=== PATIENT | female | born 1990 | race Caucasian/White ===

== ENCOUNTER 2017-01-29 21:18 | Outpatient (CLI) | payer MEDICAID ==
[~2017-01-29] VITALS: Ht 157.5 cm; Wt 106.3 kg
[~2017-01-29 21:18] MED LIST: PREN-55 PO
[2017-01-29 21:36] VITALS: Ht 157.5 cm; Wt 106.3 kg
[2017-01-29 21:37] VITALS: BP 122/81; PULSE 88; RESP 18
[2017-01-29 22:11] LABS: ADD UMIC YES; URINE BILIRUBIN (Dip) NEGATIVE (NEGATIVE); URINE BLOOD (Dip) NEGATIVE (NEGATIVE); URINE COLOR LT. YELLOW (YELLOW); URINE GLUCOSE (Dip) NEGATIVE (NEGATIVE); URINE KETONES (Dip) NEGATIVE (NEGATIVE); URINE LEUKOCYTE ESTERASE (Dip) TRACE (NEGATIVE); URINE NITRITE (Dip) NEGATIVE (NEGATIVE); URINE TOTAL PROTEIN (Dip) NEGATIVE (NEGATIVE); URINE UROBILINOGEN (Dip) 0.2 E.U./dL (0.1-1.0)
[2017-01-29 22:26] LABS: URINE RBCS 0-2 /HPF (0)
[2017-01-29 22:27] LABS: SQUAMOUS EPITHELIAL CELL,UR FEW
--- NOTE | 2017-01-29 23:12 | RADRPT ---
PROCEDURE: ULTRASOUND BIOPHYSICAL PROFILE CLINICAL INDICATION: 26-year-old female with contractions for cervical length evaluation. TECHNIQUE: Multiple sonographic images were obtained in order to perform a biophysical profile The images were reviewed on a PACS workstation. COMPARISON: None. FINDINGS: The cervix appears closed with a length of 3.9 cm measured transvaginally. There is a single viable intrauterine gestation. There is a transverse left presentation. Cardiac activity is present at 15 4 beats per minute. The placenta is posterior grade 2. The results of the biophysical profile are a s follows: breathing movement = 2/2 Gross body movement = 2/2 tone = 2/2 Qualitative amniotic fluid volume = 2/2 Amniotic fluid index equals 16.4 cm. This yields a biophysical profile score of 8/8. IMPRESSION: 1. Biophysical profile score is 8/8. 2. The cervix has a length of 3.9 cm. .Malcom Daugheryt MD, MD Date Time Electronically viewed and signed by .Malcom Daugherty MD, MD on 01/29/2017 23:12 .M/
--- NOTE | 2017-01-30 06:57 | QN ---
Documentation Comment iup 33 weeks co of back pain no NVFC vss exam wnl no cvat us wnl ap iup 33 weeks false labor dc home NIKI RAMIREZ MD January 30, 2017 06:57
== END 2017-01-29 23:38 | disposition home or self-care (01) ==
LOC: OBT 21:18 → L-D 21:18 → OBT 23:38
PROVIDERS: ATTEND Obstetrics & Gynecology
DX: O26.893 Other specified pregnancy related conditions, third trimester (principal); M54.9 Dorsalgia, unspecified; Z3A.33 33 weeks gestation of pregnancy
CPT/HCPCS: 76817; 76818; 81001; Z7500; G0463

== ENCOUNTER 2017-03-14 09:56 | Outpatient (CLI) | payer MEDICAID ==
[~2017-03-14] VITALS: Ht 157.5 cm; Wt 108.6 kg
[2017-03-14 10:11] VITALS: BP 123/68; PULSE 93; RESP 18
[2017-03-14] MEDS ORDERED: CALC600T11 PO (10:13)
[2017-03-14] MEDS ORDERED: FOL8 PO (10:13)
[2017-03-14] MEDS ORDERED: FERR236T PO (10:13)
--- NOTE | 2017-03-14 12:58 | RADRPT ---
PROCEDURE: US OB biophysical profile. CLINICAL INDICATION: decreased movements TECHNIQUE: Multiple sonographic images of the pelvis were obtained. The images were reviewed on a PACS workstation. COMPARISON: 01/29/2017 FINDINGS: There is a single viable intrauterine gestation. Cardiac activity is present with , 140 beats per m inute. There is a vertex presentation. The placenta is fundal. There is no evidence of placental abruption. There is a normal amount of amniotic fluid with an CHANTELLE = 8.9 cm. Biophysical profile: movement 2/2 tone 2/2. breathing 2/2 CHANTELLE 2/2 Total 04/13 RPTAT: AA . IMPRESSION: Normal biophysical profile. . .Jose Borrego MD, MD Date Time Electronically viewed and signed by .Jose Borrego MD, MD on 03/14/2017 12:58 .S/
--- NOTE | 2017-03-14 13:01 | RADRPT ---
PROCEDURE: US OB. CLINICAL INDICATION: Size and dates TECHNIQUE: Multiple sonographic images of the pelvis and gravid uterus were obtained. The images were reviewed on a PACS workstation. COMPARISON: 01/29/2017 FINDINGS: There is a single viable intrauterine gestation. Cardiac activity is present at 142 beats per minut e. There is a vertex presentation. The placenta is fundal. There is no evidence of placental abruption. There is a normal amount of amniotic fluid with an CHANTELLE = 8.9 cm. Measurements were made in order to determine age. The results are as follows: BPD =9.0 cm HC =31.3 cm AC =32.3 cm FL =7.3 cm Estimated gestational age of approximately 36 weeks and 2 days based on ultrasound measurements. Clinical age: 39 weeks and 6 days. The estimated date of delivery is 04/09/2017, based on ultrasound measurements. The EFW = 2931 g, 7%, based on LMP age. RPTAT: AA IMPRESSION: Single viable intrauterine gestation of approximately 36 weeks and 2 days based on ultrasound measu rements. Smaller than clinical age by 3.5 weeks. .Jose Borrego MD, Date Time Electronically viewed and signed by .Jose Borrego MD, on 03/14/2017 13:01 .S/
--- NOTE | 2017-03-14 16:36 | PN ---
Triage Information Date/Time March Weeks of Gestation 39w 6d : 4 Para: 2 Diabetes: none Hypertention: none Additional information C/O UC's since 0900. PMHx: none. POBHx: x 2 2009, 2012 neither of which was a particularly quick labor. SAB at 4 months. PSHx: none. NKDA. Objective Vital Signs Date Time Temp Pulse Resp B/P Pulse Ox O2 Delivery O2 Flow Rate FiO2 03/14/17 10:11 97.9 93 18 123/68 96 Room Air Heart Rate: 140's Heart Rate Comments Accels to 160 bpm. No decels. Contractions: 6-10 Minutes Apart Exam 50%/2/-3/firm/vtx. Results/Medications Imaging Results BPP 8/8. CHANTELLE 8.9. EFW 2931 grams. Assessment/Plan A: IUP at 39w 6d. Prodromal labor. No change in her cervix with ambulation and time. P: D/C home. Keep appt with her doctor on 03/17 as scheduled. MIRTA GONZALEZ MD Mar 14, 2017 16:33
--- NOTE | 2017-03-14 17:06 | TRIAGE ---
OB Triage Datetime Report Generated by CPN: 03/14/2017 17:06 Datetime: 03/14/2017 16:34 Time of Arrival: 03/14/2017 09:50 EGA: 39.6 Arrived By: Wheelchair Arrived From: Emergency Dept Chief Complaint: PT REPORTS CONTRACTIONS FROM APPROX 0900 Movement: Present Contractions: Regular Time Contractions Began: 03/14/2017 09:00 Contractions: Q5-10MIN Rupture of Membranes: Denies Vaginal Bleeding: None Vaginal Discharge: Denies Recent Sexual Intercouse: Yes Abdominal Trauma: Not Applicable Patient Complaints: Contractions Time Provider Notified: 03/14/2017 10:46 Provider Notified: DR. GONZALEZ Initial Plan: EFM x2, SVE Datetime: 03/14/2017 16:09 Nausea/Vomiting: Denies Labor Evaluation Frequency: NONE Monitor Mode: External Pattern: Normal: <= 5 Contractions in 10 Minutes Resting Tone [place]: Relaxed Heart Rate FHR Baseline Rate: 135 FHR Baseline Changes: No Baseline Change Variability: Moderate 6-25 bpm Accelerations: 15X15 Decelerations: None Comments: FHTs OFF MONITOR WHILE PT ON SIDE. Pain Assessment Pain Scale: 0 Pain Presence: None/Denies Pain Type: N/A Pain Assessment Comments: PT REPORTS THAT SHE NO LONGER FEELS CONTRACTIONS. Datetime: 03/14/2017 16:04 Vaginal Exam Dilatation (cms): 1.0 Exam By: DR. REICHE Cervix, Consistency: Firm Cervix, Position: Posterior Datetime: 03/14/2017 15:18 Nausea/Vomiting: Present Datetime: 03/14/2017 15:00 Labor Evaluation Frequency: 0 Monitor Mode: External Quality: Mild Pattern: Normal: <= 5 Contractions in 10 Minutes Resting Tone [place]: Relaxed Heart Rate FHR Baseline Rate: 135 Monitor Mode: External US FHR Baseline Changes: No Baseline Change Variability: Moderate 6-25 bpm Accelerations: 15X15 Decelerations: None Datetime: 03/14/2017 14:00 Labor Evaluation Frequency: x2 Monitor Mode: External Duration (sec)2399: 40-60 Quality: Mild Pattern: Normal: <= 5 Contractions in 10 Minutes Resting Tone [place]: Relaxed Heart Rate FHR Baseline Rate: 135 Monitor Mode: External US FHR Baseline Changes: No Baseline Change Variability: Moderate 6-25 bpm Accelerations: 15X15 Decelerations: None Datetime: 03/14/2017 13:00 Labor Evaluation Frequency: X2 Monitor Mode: External Duration (sec)2399: 50-80 Quality: Mild Pattern: Normal: <= 5 Contractions in 10 Minutes Resting Tone [place]: Relaxed Contraction Comments: PT MAY HAVE HAD MORE WHILE HAVING U/S DONE. Heart Rate FHR Baseline Rate: 135 Monitor Mode: External US FHR Baseline Changes: No Baseline Change Variability: Moderate 6-25 bpm Accelerations: 15X15 Decelerations: None Category: Category I Datetime: 03/14/2017 12:45 Monitor Mode: External Monitor Mode: External US Datetime: 03/14/2017 12:02 Maternal Assessment Level of Consciousness: Fully Conscious Headache: Denies Blurred Vision: No Nausea/Vomiting: Denies RUQ Epigastric Pain: Denies Facial Edema: None Labor Evaluation Frequency: 5-12 Monitor Mode: External Duration (sec)2399: 60-80 Quality: Mild Pattern: Normal: <= 5 Contractions in 10 Minutes Resting Tone [place]: Relaxed Heart Rate FHR Baseline Rate: 145 Monitor Mode: External US FHR Baseline Changes: No Baseline Change Variability: Minimal - Undetectable to <=5 bpm Accelerations: 15X15 Decelerations: Variable Pain Assessment Pain Scale: 3 Pain Presence: Intermittent Pain Type: Contraction Pain Location: Abdomen Datetime: 03/14/2017 11:01 Labor Evaluation Frequency: 5-13 Monitor Mode: External Duration (sec)2399: 60-100 Quality: Mild Pattern: Normal: <= 5 Contractions in 10 Minutes Resting Tone [place]: Relaxed Heart Rate FHR Baseline Rate: 145 Monitor Mode: External US FHR Baseline Changes: No Baseline Change Variability: Moderate 6-25 bpm Accelerations: 10X10 Decelerations: Variable Datetime: 03/14/2017 10:19 Vaginal Exam Dilatation (cms): 0.5 Effacement (%): 0 Station: -3 Exam By: CKUNIYOSHI Vaginal Bleeding: None Cervix, Consistency: Soft Cervix, Position: Posterior Presentation 'A': Unable to Assess Datetime: 03/14/2017 10:04 Stage of : OB Triage Assessment Type: Triage Maternal Assessment Level of Consciousness: Fully Conscious Headache: Denies Blurred Vision: No Respiratory Effort: Unlabored; Regular Rhythm; Equal Expansion Breath Sounds, Left: Clear and Equal Breath Sounds, Right: Clear and Equal Nausea/Vomiting: Denies RUQ Epigastric Pain: Denies Lower Extremities Edema: Bilateral Lower Extremities Degree: 1+ Upper Extremities Edema: None Degree: None Facial Edema: None Temperature Route: Oral Fall Risk Assessment History of Falling: (0) No Secondary Diagnosis: (0) No Ambulatory Aid: (0) Bedrest/Nurse Assist IV Therapy: (0) No Gait: (0) Normal/Bedrest/Immobile Mental Status: (0) Oriented to Own Ability Fall Score: 0 Fall Risk Score Definition: No Risk: No action required Pain Assessment Pain Scale: 3 Pain Presence: Intermittent Pain Type: Contraction Pain Location: Abdomen Datetime: 01/29/2017 23:38 Stage of : OB Triage Arrived From: Other Unit in Hospital Movement: Present Contractions: Regular Rupture of Membranes: Denies Vaginal Discharge: Denies Recent Sexual Intercouse: Yes Datetime: 01/29/2017 23:20 Stage of : OB Triage Labor Evaluation Frequency: IRREGULAR Monitor Mode: External Duration (sec)2399: 60 Quality: Mild Pattern: Normal: <= 5 Contractions in 10 Minutes Resting Tone [place]: Relaxed Heart Rate FHR Baseline Rate: 145 Monitor Mode: External US FHR Baseline Changes: No Baseline Change Variability: Moderate 6-25 bpm Accelerations: 15X15 Decelerations: None Category: Category I Datetime: 01/29/2017 23:16 Stage of : OB Triage (Annotations: PITCHER OF JUICE GIVEN 800 ML) Datetime: 01/29/2017 23:15 Pain Assessment Pain Scale: 0 Pain Presence: None/Denies Datetime: 01/29/2017 23:06 Stage of : OB Triage Datetime: 01/29/2017 22:19 Labor Evaluation Frequency: 3-4 Duration (sec)2399: 60-100 Heart Rate FHR Baseline Rate: 135 Monitor Mode: External US FHR Baseline Changes: No Baseline Change Variability: Moderate 6-25 bpm Accelerations: 15X15 Decelerations: None Category: Category I Datetime: 01/29/2017 21:44 Vaginal Exam Dilatation (cms): 0.0 Effacement (%): 0 Station: -3 Exam By: RAHUL RN Vaginal Bleeding: None Cervix, Consistency: Firm Cervix, Position: Posterior Datetime: 01/29/2017 21:42 EGA: 33.4 Datetime: 01/29/2017 21:24 Stage of : OB Triage Time of Arrival: 01/29/2017 21:24 Arrived By: Wheelchair Arrived From: Home Chief Complaint: BACK PAIN THAT STARTED X2 HRS Movement: Present Contractions: Denies/Absent Time Contractions Began: 01/29/2017 19:00 Rupture of Membranes: Denies Vaginal Bleeding: None Vaginal Discharge: Denies Recent Sexual Intercouse: Yes Abdominal Trauma: Not Applicable Additional Patient Complaints: INTERCOURSE Time Provider Notified: 01/29/2017 20:39 Provider Notified: DR GOMEZ Initial Plan: CALL [facility] Maternal Assessment Level of Consciousness: Fully Conscious DTR's/Clonus: DTRs 2+; No Clonus Headache: Denies Blurred Vision: No Respiratory Effort: Unlabored; Regular Rhythm; Equal Expansion Breath Sounds, Left: Clear and Equal Breath Sounds, Right: Clear and Equal Nausea/Vomiting: Denies RUQ Epigastric Pain: Denies Lower Extremities Edema: None Degree: None Upper Extremities Edema: None Degree: None Facial Edema: None Temperature Route: Oral Fall Risk Assessment History of Falling: (0) No Secondary Diagnosis: (0) No Ambulatory Aid: (0) Bedrest/Nurse Assist IV Therapy: (0) No Gait: (0) Normal/Bedrest/Immobile Mental Status: (0) Oriented to Own Ability Fall Score: 0 Fall Risk Score Definition: No Risk: No action required Monitor Mode: External Monitor Mode: External US Pain Assessment Pain Scale: 1 Pain Presence: Intermittent Pain Type: Contraction Pain Location: Abdomen; Back
== END 2017-03-14 16:44 | disposition home or self-care (01) ==
LOC: OBT 09:56 → L-D 09:57 → OBT 16:44
PROVIDERS: ATTEND Obstetrics & Gynecology
DX: O62.8 Other abnormalities of forces of labor (principal); Z3A.39 39 weeks gestation of pregnancy
CPT/HCPCS: 76815; 76818; Z7500; G0463

== ENCOUNTER 2017-03-15 06:55 | Inpatient (IN) | payer MEDICAID ==
[~2017-03-15] VITALS: Ht 157.5 cm; Wt 108.3 kg
[~2017-03-15 06:55] MED LIST changes: +CALC600T11 PO; +FERR236T PO; +FOL8 PO
[2017-03-15 07:19] VITALS: BP 119/61; PULSE 85; RESP 18; Ht 157.5 cm; Wt 108.3 kg
--- NOTE | 2017-03-15 10:03 | RADRPT ---
PROCEDURE: OB ultrasound for biophysical profile CLINICAL INDICATION: Post dates TECHNIQUE: Multiple sonographic images of the pelvis were obtained. Transabdominal views of the g ravid uterus are available for review. The images were reviewed on a PACS workstation. COMPARISON: None FINDINGS: breathing movement = 2/2 tone = 2/2 motion = 2/2 CHANTELLE = 2/2 CHANTELLE = 6.4 cm Single live intrauterine with cardiac activity of 139 bpm. position is cephal ic. The placenta is left lateral. IMPRESSION: 1. Single live intrauterine gestation. 2. Biophysical profile = 8/8. 3. CHANTELLE = 6.4 cm. RPTAT: HH .Mindy Fernandez MD, MD Date Time Electronically viewed and signed by .Mindy Fernandez MD, on 03/15/2017 10:03 .G/
[2017-03-15] MEDS ORDERED: LACTATED RINGER'S 1,000 ML IV SCH (10:30)
--- NOTE | 2017-03-15 13:51 | RADRPT ---
PROCEDURE: US evaluation of amniotic fluid volume. CLINICAL INDICATION: Low amniotic fluid volume. TECHNIQUE: Multiple sonographic images of the gravid uterus were obtained utilizing piña-scale emery ging. Sagittal and transverse images were obtained. The images were reviewed on a PACS workstation . CHANTELLE was measured. COMPARISON: 03/14/2017. FINDINGS: There is a single live intrauterine . heart rate is 159 beats per minute. Position is cephalic. Placenta is posterior right grade II with no abruption or previa. CHANTELLE is 5.0 cm. (Normal = 5-20 cm.) IMPRESSION: 1. CHANTELLE is 5.0 cm. RPTAT: QQ .Allen Sinclair MD, MD Date Time Electronically viewed and signed by .Allen Sinclair MD, on 03/15/2017 13:50 .R/
[2017-03-15] MEDS ORDERED: OXYTOCIN 30 UNITS/LR 500 ML IV PRN (14:30)
[2017-03-15] MEDS ORDERED: MISOPROSTOL 200 MCG TAB PR PRN (14:30)
[2017-03-15] MEDS ORDERED: METHYLERGONOVINE 0.2 MG INJ IM PRN (14:30)
[2017-03-15] MEDS ORDERED: CARBOPROST 250 MCG INJ IM PRN (14:30)
[2017-03-15] MEDS ORDERED: ACETAMINOPHEN/CODEINE #3 TAB PO PRN (14:30)
[2017-03-15] MEDS ORDERED: BUTORPHANOL 2 MG INJ IV PRN ×2 (14:30)
[2017-03-15] MEDS ORDERED: OXYTOCIN 30 UNITS/LR 500 ML IV SCH ×2 (14:30)
[2017-03-15] MEDS ORDERED: LIDOCAINE 1% (MPF) 30 ML INJ INJ PRN (14:30)
[2017-03-15] MEDS ORDERED: IBUPROFEN 600 MG TAB PO PRN (14:30)
[2017-03-15] MEDS ORDERED: AMPICILLIN 2 GM/NS (PMX) 100 ML IV ONE (14:30)
[2017-03-15] MEDS: LACTATED RINGER'S 1,000 ML IV SCH ×2 (14:36→23:55)
[2017-03-15 15:28] LABS: ADD SCAN DIFF NO
[2017-03-15] MEDS ORDERED: DINOPROSTONE 10 MG VAG SUPP VAG ONE (15:30)
[2017-03-15 15:31] LABS: BASOPHIL # 0.1 10^3/ul (0.0-0.1); BASOPHILS % 0.7 % (0.0-2.0); EOSINOPHILS # 0.1 10^3/ul (0.0-0.5); EOSINOPHILS % 0.9 % (0.0-7.0); HEMATOCRIT 34.3 % (37.0-47.0); HEMOGLOBIN 10.9 g/dl (12.0-16.0); LYMPHOCYTES # 3.1 10^3/ul (0.8-2.9); MEAN CORPUSCULAR HEMOGLOBIN 26.1 pg (29.0-33.0); MEAN CORPUSCULAR HGB CONC 31.8 g/dl (32.0-37.0); MEAN CORPUSCULAR VOLUME 82.3 fl (82.0-101.0); MEAN PLATELET VOLUME 11.2 fl (7.4-10.4); MONOCYTE # 0.7 10^3/ul (0.3-0.9); MONOCYTES % 7.6 % (0.0-11.0); NEUTROPHIL # 5.7 10^3/ul (1.6-7.5); NEUTROPHILS % 58.1 % (39.0-77.0); PLATELET COUNT 290 10^3/UL (140-415); RED BLOOD COUNT 4.17 10^6/ul (4.20-5.40); RED CELL DISTRIBUTION WIDTH 15.4 % (11.5-14.5); WHITE BLOOD COUNT 9.7 10^3/ul (4.8-10.8)
[2017-03-15 15:46] LABS: INR 0.96; PROTIME 12.8 Sec (12.2-14.2)
[2017-03-15 15:47] LABS: PARTIAL THROMBOPLASTIN TIME 31.8 Sec (25.0-35.0)
--- NOTE | 2017-03-15 17:35 | HP ---
Date/Time of Note Date/Time of Note DATE: 03/15/17 TIME: 17:29 OB - History Hx of Present Free Text/Dictation 25 years old female 4 para 2 EDC March 15, 2017 admitted to [facility] in early labor pelvic examination on admission cervix 1 cm dilated 50% effacement vertex at -3 station patient admitted in labor and delivery room under close observation during labor possibility of labor augmentation discussed with patient and she agreed to augment if that is required Chief Complaint: 40 weeks early labor Estimated Due Date: Mar 15, 2017 : 4 Para: 2 Spontaneous : 1 Care: Good Care Ultrasounds: Normal mid trimester US Obstetrical Complications: None Medical Complications: None Past Family/Social History * Past Medical, Surgical, Family and Obstetric Histories reviewed from chart. Rubella: immune RPR/VDRL: Negative GBS Status: Negative HBsAG: Negative OB Admission Exam Vital Signs Vital Signs Vital Signs Date Time Temp Pulse Resp B/P Pulse Ox O2 Delivery O2 Flow Rate FiO2 03/15/17 07:19 98.5 85 18 119/61 97 Room Air Physical Exam HEENT: WNL Heart: Rhythm Normal Lungs: Clear, Equal Abdomen: WNL Extremities: Normal Cervical Dilatation: 1cm Effacement: 50% Station: -2 Membranes: Intact Heart Rate: 130's Accelerations: Accelerations Present Decelerations: No Decelerations Varibility: Moderate Contractions on Admission: 6-10 Minutes Apart Last 72 hours Lab Results CBC & BMP 03/15/17 11:00 HENRY LANDEROS MD Mar 15, 2017 17:34
[2017-03-15] MEDS: AMPICILLIN 1 GM/NS (PMX) 50 ML IV SCH ×2 (18:35→22:26)
[2017-03-15] MEDS ORDERED: LACTATED RINGER'S 1,000 ML IV PRN (22:00)
[2017-03-16] MEDS ORDERED: OXYTOCIN 30 UNITS/LR 500 ML IV SCH ×2 (01:00→13:41)
[2017-03-16] MEDS ORDERED: FENTAnyl 2MCG/ML-ROPIV 0.2% 100 ML ONE (01:22)
[2017-03-16] MEDS ORDERED: ONDANSETRON 4 MG INJ IV PRN ×2 (02:00→14:00)
[2017-03-16] MEDS ORDERED: FENTAnyl 2MCG/ML-ROPIV 0.2% 100 ML BAG EPI SCH (02:00)
[2017-03-16] MEDS ORDERED: ZOLPIDEM 5 MG TAB PO PRN (02:00)
[2017-03-16] MEDS ORDERED: NALOXONE (0.4 MG/ML) INJ IV PRN (02:00)
[2017-03-16] MEDS ORDERED: HYDROmorphONE 1 MG/ML SYG IV PRN ×2 (02:00)
[2017-03-16] MEDS ORDERED: PROCHLORPERAZINE 10 MG INJ IV PRN (02:00)
[2017-03-16] MEDS ORDERED: KETOROLAC 30 MG INJ IV PRN (02:00)
[2017-03-16] MEDS ORDERED: DIPHENHYDRAMINE 50 MG INJ IV PRN (02:00)
[2017-03-16] MEDS: AMPICILLIN 1 GM/NS (PMX) 50 ML IV SCH ×3 (02:33→10:30)
[2017-03-16] MEDS: LACTATED RINGER'S 1,000 ML IV SCH (06:42)
[2017-03-16] MEDS ORDERED: DEXTROSE 5%-LR 1,000 ML IV PRN (09:00)
[2017-03-16] MEDS ORDERED: MINERAL OIL LIGHT 10 ML VIAL TOP PRN (10:00)
--- NOTE | 2017-03-16 10:26 | LDN ---
Date/Time of Note Date/Time of Note DATE: 03/16/17 TIME: 10:20 Delivery Summary Normal spontaneous vaginal delivery of a baby girl from OA position shoulders delivered without any difficulty rest of the baby's body followed cord which was meconium stain clamped after stopped pulsation placenta expelled, spontaneously, meconium stain membrane ,sent to pathology ,estimated blood loss 250 Weeks of Gestation 40 week Placenta Delivered: Spontaneously Meconium: Thick Episiotomy: No Laceration repair: Small left labia laceration repaired with 4-0 chromic catgut Anesthesia type: Epidural Sponge & Needle done & correct: Yes All needle counts correct: Yes Any foreign bodies felt in the: No Problems: Delivery Information Sex Sex: female Apgars 1 Minute: 8 5 Minute: 9 Suctioning Nose & mouth suctioned at ronni: Yes Delee suction performed: No Umbilical Cord Umbilical cord with: 3 Vessels Cord presentations: nuchal cord Nuchal cord present X: 1 Cord Blood was obtained: Yes HENRY LANDEROS MD Mar 16, 2017 10:26
[2017-03-16 13:15] VITALS: BP 116/69; PULSE 63; RESP 18
[2017-03-16 13:47] VITALS: BP 109/63; PULSE 63; RESP 18
[2017-03-16] MEDS ORDERED: WITCH HAZEL/GLYCERIN PAD PR PRN (14:00)
[2017-03-16] MEDS ORDERED: DIBUCAINE 1% 30 GM OINT TOP PRN (14:00)
[2017-03-16] MEDS ORDERED: LANOLIN 7 GM TUBE TOP PRN (14:00)
[2017-03-16] MEDS ORDERED: ACETAMINOPHEN 325 MG TAB PO PRN (14:00)
[2017-03-16] MEDS ORDERED: ACETAMINOPHEN/CODEINE #3 TAB PO PRN (14:00)
[2017-03-16] MEDS ORDERED: BENZOCAINE 20% 56 ML SPRAY TOP PRN (14:00)
[2017-03-16] MEDS ORDERED: OXYCODONE/ASPIRIN (4.88/325) TAB PO PRN (14:00)
[2017-03-16] MEDS: OXYCODONE/ASPIRIN (4.88/325) TAB PO PRN ×2 (15:53→21:23)
[2017-03-16 16:00] VITALS: BP 111/61; PULSE 69; RESP 18
[2017-03-16] MEDS: IBUPROFEN 600 MG TAB PO SCH (17:26)
[2017-03-16 20:00] VITALS: BP 109/61; PULSE 68; RESP 18
[2017-03-16] MEDS: SENNA/DOCUSATE NA (8.6MG/50MG) TAB PO SCH (21:02)
[2017-03-17] MEDS: IBUPROFEN 600 MG TAB PO SCH ×5 (00:19→23:51)
[2017-03-17 04:00] VITALS: BP 94/50; PULSE 66; RESP 18
[2017-03-17 08:00] VITALS: BP 94/52; PULSE 72; RESP 19
[2017-03-17] MEDS: SENNA/DOCUSATE NA (8.6MG/50MG) TAB PO SCH ×2 (09:13→20:54)
[2017-03-17] MEDS: ACETAMINOPHEN/CODEINE #3 TAB PO PRN ×2 (09:15→23:08)
--- NOTE | 2017-03-17 09:49 | PN ---
Date/Time of Note Date/Time of Note DATE: 03/17/17 TIME: 09:48 OB Subjective Subjective Subjective day 1 Afebrile vital signs stable abdomen soft uterus firm lochia normal extremity normal Current Medications Medications (Trade) Dose Ordered Sig/Shaka Route PRN Reason Start Time Stop Time Status Last Admin Dose Admin Lactated Ringer's 1,000 ml @ 125 mls/hr Q8H IV 03/15/17 10:30 03/15/17 18:41 DC 03/15/17 10:57 Lactated Ringer's 1,000 ml @ 125 mls/hr Q8H IV 03/15/17 14:29 03/16/17 13:46 DC 03/16/17 06:42 Ampicillin 100 ml @ 100 mls/hr ONCE ONCE IV 03/15/17 14:30 03/15/17 15:29 DC 03/15/17 14:54 Ampicillin (Ampicillin 1 Gm/ NS (Pmx)) 50 ml @ 100 mls/hr Q4H IV 03/15/17 18:30 03/16/17 13:46 DC 03/16/17 06:43 Butorphanol Tartrate (Stadol) 1 mg Q2H PRN IV PAIN 03/15/17 14:30 03/16/17 13:46 DC Butorphanol Tartrate (Stadol) 2 mg Q2H PRN IV PAIN 03/15/17 14:30 03/16/17 13:46 DC 03/15/17 22:33 Lidocaine 30 ml 30 ml ONCE PRN INJ EPISIOTOMY/TEARING 03/15/17 14:30 03/16/17 13:46 DC Oxytocin/Lactated Ringer's 500 ml @ 125 mls/hr ONCE -MAY REPEAT X1 IV 03/15/17 14:30 03/16/17 13:46 DC 03/16/17 10:47 Oxytocin/Lactated Ringer's 500 ml @ 125 mls/hr ONCE IV 03/15/17 14:30 03/16/17 13:46 DC Ibuprofen (Motrin) 600 mg ONCE PRN PO Mild Pain (Pain Score 1-3) 03/15/17 14:30 03/16/17 13:46 DC 03/16/17 11:39 Acetaminophen/ Codeine Phosphate 2 tab 2 tab ONCE PRN PO Moderate to Severe Pain (4-10) 03/15/17 14:30 03/16/17 13:46 DC Lactated Ringer's 1,000 ml @ 2,000 mls/hr Q30M PRN IV PRE-EPIDURAL BOLUS 03/15/17 22:00 03/16/17 13:46 DC 03/16/17 01:24 Oxytocin/Lactated Ringer's 500 ml @ 0 mls/hr ONCE PRN IV For Hemorrhage Management 03/15/17 14:30 03/16/17 13:46 DC Methylergonovine Maleate (Methergine) 0.2 mg ONCE PRN IM VAGINAL BLEEDING 03/15/17 14:30 03/16/17 13:46 DC Carboprost Tromethamine (Hemabate) 250 mcg ONCE PRN IM VAGINAL BLEEDING 03/15/17 14:30 03/16/17 13:46 DC Misoprostol (Cytotec) 1,000 mcg ONCE PRN NC VAGINAL BLEEDING 03/15/17 14:30 03/16/17 13:47 DC Dinoprostone 10 mg 10 mg ONCE ONCE VAG 03/15/17 15:30 03/15/17 15:31 DC 03/15/17 15:28 Oxytocin/Lactated Ringer's 500 ml @ 0 mls/hr Q0M IV 03/16/17 01:00 03/16/17 13:47 DC 03/16/17 04:09 Fentanyl/ Ropivacaine 100 ml @ ud STK-MED ONCE .ROUTE 03/16/17 01:22 03/16/17 01:23 DC Naloxone HCl (Narcan) 0.1 mg Q2M PRN IV FOR RESP RATE 8 OR LESS 03/16/17 02:00 03/16/17 13:47 DC Ketorolac Tromethamine (Toradol) 30 mg Q6H PRN IV PAIN 03/16/17 02:00 03/16/17 13:47 DC Hydromorphone HCl (Dilaudid) 0.2 mg Q3H PRN IV PAIN LEVEL 1-5 03/16/17 02:00 03/16/17 13:47 DC Hydromorphone HCl (Dilaudid) 0.4 mg Q3H PRN IV PAIN LEVEL 6-10 03/16/17 02:00 03/16/17 13:47 DC Diphenhydramine HCl (Benadryl) 25 mg Q6H PRN IV ITCHING 03/16/17 02:00 03/16/17 13:47 DC Ondansetron HCl (Zofran Inj) 4 mg Q6H PRN IV NAUSEA AND/OR VOMITING 03/16/17 02:00 03/16/17 13:47 DC 03/16/17 09:32 Prochlorperazine (Compazine Inj) 10 mg ONCE PRN IV NAUSEA AND/OR VOMITING 03/16/17 02:00 03/16/17 13:47 DC Zolpidem Tartrate (Ambien) 5 mg HS MAY REPEAT X 1 PRN PO INSOMNIA 03/16/17 02:00 03/16/17 13:47 DC Fentanyl/ Ropivacaine 100 ml 100 ml EPIDURAL INFUSION EPI 03/16/17 02:00 03/16/17 13:47 DC 03/16/17 09:50 Dextrose/Lactated Ringer's (D5-Lr) 1,000 ml @ 125 mls/hr Q8H PRN IV NON-REACTIVE FHTs 03/16/17 09:00 03/16/17 13:47 DC 03/16/17 08:50 Mineral Oil 30 ml 30 ml ONCE PRN TOP FOR DELIVERY 03/16/17 10:00 03/16/17 13:47 DC Oxytocin/Lactated Ringer's 500 ml @ 125 mls/hr Q4H IV 03/16/17 13:41 03/16/17 21:40 DC 03/16/17 14:28 Ibuprofen (Motrin) 600 mg Q6 PO 03/16/17 18:00 03/17/17 06:38 Acetaminophen (Tylenol Tab) 650 mg Q4H PRN PO PAIN LEVEL 1-5 03/16/17 14:00 Acetaminophen/ Codeine Phosphate (Tylenol No.3) 1 tab Q4H PRN PO PAIN LEVEL 1-5 03/16/17 14:00 Acetaminophen/ Codeine Phosphate (Tylenol No.3) 2 tab Q4H PRN PO PAIN LEVEL 6-10 03/16/17 14:00 03/17/17 09:15 Oxycodone/Aspirin (Percodan) 1 tab Q3H PRN PO PAIN LEVEL 1-5 03/16/17 14:00 Oxycodone/Aspirin (Percodan) 2 tab Q3H PRN PO PAIN LEVEL 6-10 03/16/17 14:00 03/16/17 21:23 Ondansetron HCl (Zofran Inj) 4 mg Q6H PRN IV NAUSEA AND/OR VOMITING 03/16/17 14:00 Senna/Docusate Sodium (Senokot-S) 1 tab BID PO 03/16/17 21:00 03/17/17 09:13 Witch Joan/ Glycerin (Tucks Pads) 1 pad BEDSIDE MEDICATION PRN NC HEMORRHOID/EPISIOTMY PAIN 03/16/17 14:00 03/16/17 14:26 Benzocaine (Dermoplast [place]) 1 spray BEDSIDE MEDICATION PRN TOP HEMORRHOID/EPISIOTMY PAIN 03/16/17 14:00 03/16/17 14:25 Dibucaine (Nupercainal) 1 applic BEDSIDE MEDICATION PRN TOP HEMORRHOID/EPISIOTMY PAIN 03/16/17 14:00 Lanolin (Fne-L-Qzhhfk) 1 applic BEDSIDE MEDICATION PRN TOP BEDSIDE FOR MERON TO NIPPLES 03/16/17 14:00 03/16/17 14:25 Measles/Mumps/ Rubella Vaccine Live (Mmr Ii Vaccine) 0.5 ml ONCE ONCE SC* 03/18/17 09:00 03/18/17 09:01 HENRY LANDEROS MD Mar 17, 2017 09:49
--- NOTE | 2017-03-17 10:20 | PD.PPDC ---
CHANNELER INSOLE Discharge Instruction Condition Patient Condition: Good Diet Diet: Resume Regular Diet Follow-up Follow-up with Physician: 2, Week/Weeks ( instructions given) Provider Information: instructions given to the to make appointment in 2 weeks to be seen in the office Return to clinic for [facility] APPRENTICE Instructions: Fever greater than 101 Chills Worsening abdominal pain Excessive Vaginal Bleeding More than 2 pads per hour Unable to tolerate diet OB Instructions: Breast Tenderness Depression Blurried Vision Headache HENRY LANDEROS MD Mar 17, 2017 10:20
--- NOTE | 2017-03-17 10:23 | DS ---
Date/Time of Note Date/Time of Note DATE: 03/17/17 TIME: 10:21 Discharge Summary Admission/Discharge Info Admit Date/Time Mar 15, 2017 at 14:22 Discharge Date/Time March 18 at 8 AM Discharge Diagnosis Post normal vaginal delivery day 2 Patient Condition: Good Procedures Normal vaginal Hx of Present Illness Term in labor Hospital Course Satisfactory uneventful Home Meds Reported Medications Folic Acid* (Folic Acid*) 0.8 Mg Tablet, 0.8 MG PO DAILY, TAB 03/14/17 Calcium Carbonate* (Calcium Carbonate*) 600 MG Ca Tab, 600 MG PO DAILY, TAB 03/14/17 Ferrous Gluconate (Iron) 236 Mg Tablet, 236 MG PO, TAB 03/14/17 Vit #49/Iron Fum/Fa (MINI TABLET) 1 Each Tablet, 1 EACH PO DAILY 02/19/13 Follow-up Plan Appointment clinic in 2 weeks for check Primary Care Provider Care Physician No Primary Time spent on discharge: < 30 minutes HENRY LANDEROS MD Mar 17, 2017 10:23
[2017-03-17 11:02] LABS: ADD SCAN DIFF NO
[2017-03-17 11:09] LABS: BASOPHIL # 0.1 10^3/ul (0.0-0.1); BASOPHILS % 0.4 % (0.0-2.0); EOSINOPHILS # 0.1 10^3/ul (0.0-0.5); EOSINOPHILS % 0.9 % (0.0-7.0); HEMOGLOBIN 10.1 g/dl (12.0-16.0); LYMPHOCYTES # 4.7 10^3/ul (0.8-2.9); LYMPHOCYTES % 41.4 % (15.0-51.0); MEAN CORPUSCULAR HEMOGLOBIN 26.5 pg (29.0-33.0); MEAN CORPUSCULAR HGB CONC 31.6 g/dl (32.0-37.0); MEAN PLATELET VOLUME 11.1 fl (7.4-10.4); MONOCYTE # 0.5 10^3/ul (0.3-0.9); MONOCYTES % 4.6 % (0.0-11.0); NEUTROPHIL # 5.9 10^3/ul (1.6-7.5); NEUTROPHILS % 52.1 % (39.0-77.0); PLATELET COUNT 269 10^3/UL (140-415); RED BLOOD COUNT 3.81 10^6/ul (4.20-5.40); RED CELL DISTRIBUTION WIDTH 15.1 % (11.5-14.5); WHITE BLOOD COUNT 11.3 10^3/ul (4.8-10.8)
[2017-03-17 16:45] VITALS: BP 121/70; PULSE 75; RESP 17
[2017-03-17 20:00] VITALS: BP 92/55; PULSE 69; RESP 18
[2017-03-18 04:00] VITALS: BP 109/61; PULSE 66; RESP 20
[2017-03-18] MEDS: IBUPROFEN 600 MG TAB PO SCH ×3 (05:34→17:24)
[2017-03-18] MEDS: OXYCODONE/ASPIRIN (4.88/325) TAB PO PRN (08:32)
[2017-03-18] MEDS: SENNA/DOCUSATE NA (8.6MG/50MG) TAB PO SCH (08:32)
[2017-03-18 08:38] VITALS: BP 139/83; PULSE 69; RESP 20
[2017-03-18] MEDS ORDERED: MEASLES,MUMPS,RUBELLA VACCINE INJ SC* ONE (09:00)
[2017-03-18 16:27] VITALS: BP 109/55; PULSE 65; RESP 20
== END 2017-03-18 18:23 | disposition home or self-care (01) | DRG 775 ==
LOC: OBT 06:55 → L-D 06:55 → OBT 14:20 → L-D 14:22 → PP1 03-16 13:10
PROVIDERS: ADMIT Obstetrics & Gynecology; ATTEND Obstetrics & Gynecology
PROC: 10E0XZZ Delivery of Products of Conception, External Approach (ICD-10-PCS; principal; 2017-03-16)
PROC: 0UQMXZZ Repair Vulva, External Approach (ICD-10-PCS; 2017-03-16)
DX: O69.81X0 Labor and delivery complicated by cord around neck, without compression, not applicable or unspecified (principal); Z68.41 Body mass index [BMI] 40.0-44.9, adult; O48.0 Post-term pregnancy; O70.0 First degree perineal laceration during delivery; O99.214 Obesity complicating childbirth; E66.01 Morbid (severe) obesity due to excess calories; Z3A.40 40 weeks gestation of pregnancy; Z37.0 Single live birth
CPT/HCPCS: 36415; 62319; 76816; 76818; 85025; 85610; 85730; 86592; 86900; 86901; 87340; 88307; 96360; 96361; 99464; G0463; J0290; J0595; J2405; J2590; J3010; J7120

== ENCOUNTER 2018-05-21 01:12 | Inpatient (IN) | END 2018-05-24 14:30 | disposition home or self-care (01) | DRG 775 ==

== ENCOUNTER 2018-10-08 15:45 | Emergency (ER) | payer MEDICAID ==
[~2018-10-08] VITALS: Ht 162.6 cm; Wt 87.2 kg
[~2018-10-08 15:45] MED LIST changes: -CALC600T11 PO; +CALC600T24 PO; -FERR236T PO; +FERR236T3 PO
[2018-10-08 16:01] VITALS: BP 122/81; PULSE 69; RESP 18; Ht 162.6 cm; Wt 87.2 kg
[2018-10-08] MEDS ORDERED: AZITHROMYCIN 250 MG TAB PO ONE (17:00)
--- NOTE | 2018-10-08 18:41 | ERD ---
ER Documentation Chief Complaint Chief Complaint Pelvic pain 4 days ago during menstruation ROS All systems reviewed and are negative except as per history of present illness. Medications Home Meds Reported Medications Folic Acid* (Folic Acid*) 0.8 Mg Tablet, 0.8 MG PO DAILY, TAB 03/14/17 Calcium Carbonate* (Calcium Carbonate*) 600 MG Ca Tab, 600 MG PO DAILY, TAB 03/14/17 Ferrous Gluconate (Iron) 236 Mg Tablet, 236 MG PO, TAB 03/14/17 Vit #49/Iron Fum/Fa (MINI TABLET) 1 Each Tablet, 1 EACH PO DAILY 02/19/13 Allergies Allergies: Coded Allergies: No Known Allergy (Unverified , 05/21/18) PMhx/Soc Medical and Surgical Hx: pt denies Medical Hx, pt denies Surgical Hx History of Surgery: No Anesthesia Reaction: No Hx Neurological Disorder: No Hx Respiratory Disorders: No Hx Cardiac Disorders: No Hx Psychiatric Problems: No Hx Miscellaneous Medical Probl: No Hx Alcohol Use: Yes Hx Substance Use: No Hx Tobacco Use: Yes (2-3 daily) Smoking Status: Current every day smoker Physical Exam Vitals Vital Signs Date Temp Pulse Resp B/P (MAP) Pulse Ox O2 O2 Flow FiO2 Time Delivery Rate 10/08/18 97.5 69 18 122/81 96 16:01 (95) Physical Exam Const: No acute distress Head: Atraumatic Eyes: Normal Conjunctiva ENT: Normal External Ears, Nose and Mouth. Neck: Full range of motion. No meningismus. Resp: Clear to auscultation bilaterally Cardio: Regular rate and rhythm, no murmurs Abd: Soft, non tender, non distended. Normal bowel sounds Skin: No petechiae or rashes Back: No midline or flank tenderness Ext: No cyanosis, or edema Neur: Awake and alert Psych: Normal Mood and Affect Result Diagram: 10/08/18 1655 10/08/18 1655 Results 24 hrs Laboratory Tests Test 10/08/18 16:55 White Blood Count 11.6 10^3/ul Red Blood Count 4.84 10^6/ul Hemoglobin 13.9 g/dl Hematocrit 43.6 % Mean Corpuscular Volume 90.1 fl Mean Corpuscular Hemoglobin 28.7 pg Mean Corpuscular Hemoglobin Concent 31.9 g/dl Red Cell Distribution Width 13.9 % Platelet Count 234 10^3/UL Mean Platelet Volume 10.7 fl Immature Granulocytes % 0.700 % Neutrophils % % Segmented Neutrophils % (Manual) 27 % Lymphocytes % % Lymphocytes % (Manual) 68 % Monocytes % % Monocytes % (Manual) 4 % Eosinophils % % Eosinophils % (Manual) 1 % Basophils % % Nucleated Red Blood Cells % 0.0 /100WBC Immature Granulocytes # 0.080 10^3/ul Neutrophils # 10^3/ul Lymphocytes (Manual) 7.8 10^3/ul Lymphocytes # 10^3/ul Monocytes # 10^3/ul Monocytes # (Manual) 0.4 10^3/ul Eosinophils # 10^3/ul Basophils # 10^3/ul Nucleated Red Blood Cells # 10^3/ul Platelet Estimate NORMAL Giant Platelets 2 % Urine Color YELLOW Urine Clarity SLIGHTLY CLOUDY Urine pH 6.0 Urine Specific [place] 1.020 Urine Ketones NEGATIVE mg/dL Urine Nitrite NEGATIVE mg/dL Urine Bilirubin NEGATIVE mg/dL Urine Urobilinogen NEGATIVE mg/dL Urine Leukocyte Esterase 1+ Tabatha/ul Urine Microscopic RBC 1 /HPF Urine Microscopic WBC 2 /HPF Urine Squamous Epithelial Cells FEW /HPF Urine Hemoglobin NEGATIVE mg/dL Urine Glucose NEGATIVE mg/dL Urine Total Protein NEGATIVE mg/dl Sodium Level 140 mmol/L Potassium Level 4.4 mmol/L Chloride Level 106 mmol/L Carbon Dioxide Level 28 mmol/L Anion Gap 6 Blood Urea Nitrogen 14 mg/dl Creatinine 0.58 mg/dl Est Glomerular Filtrat Rate mL/min > 60 mL/min Glucose Level 78 mg/dl Calcium Level 9.7 mg/dl Total Bilirubin 0.0 mg/dl Direct Bilirubin 0.00 mg/dl Indirect Bilirubin 0.0 mg/dl Aspartate Amino Transf (AST/SGOT) 17 IU/L Alanine Aminotransferase (ALT/SGPT) 23 IU/L Alkaline Phosphatase 77 IU/L Total Protein 7.6 g/dl Albumin 4.2 g/dl Globulin 3.40 g/dl Albumin/Globulin Ratio 1.23 Hepatitis B Surface Antigen NEGATIVE Hepatitis B Core Total Antibody NEGATIVE Hepatitis C Antibody NEGATIVE HIV (1&2) Antibody NEGATIVE Current Medications Medications Dose Sig/Shaka Start Time Status Last (Trade) Ordered Route PRN Stop Time Admin Dose Reason Admin 1,000 mg ONCE ONCE 10/08/18 DC 10/08/18 Azithromycin PO 17:00 10/08/18 16:56 (Zithromax) 17:01 Departure Diagnosis: Primary Impression: Acute pain in female pelvis Additional Impression: Screen for STD (sexually transmitted disease) Condition: Fair Patient Instructions: Pelvic Pain, Unknown Cause Additional Instructions: Llame al doctor MAANA y luisana perla REMY PARA DENTRO DE 1-2 BETTS.Dgale a la secretaria que nosotros le instruimos hacer esta remy.Avise o llame si ogden condicin se empeora antes de la remy. Regresa aqui si peor o no mejor. SHAQ MCCULLOUGH DO Oct 08, 2018 18:41
== END 2018-10-08 18:46 | disposition home or self-care (01) ==
LOC: FTE 15:45
DX: R10.2 Pelvic and perineal pain (principal); F17.210 Nicotine dependence, cigarettes, uncomplicated; Z11.3 Encounter for screening for infections with a predominantly sexual mode of transmission
CPT/HCPCS: 80053; 81001; 85025; 86592; 86703; 86704; 86709; 86803; 87340; 87591; Z7502; Z7610; 99283

== ENCOUNTER 2018-12-14 13:31 | Emergency (ER) | payer MEDICAID ==
[~2018-12-14] VITALS: Ht 160 cm; Wt 87.0 kg
[2018-12-14 13:39] VITALS: BP 133/80; PULSE 87; RESP 19; Ht 160 cm; Wt 87.0 kg
[2018-12-14] MEDS ORDERED: KETOROLAC 60 MG INJ IM STA (14:39)
[2018-12-14] MEDS ORDERED: IBUPROFEN 800 MG TAB PO ONE (15:00)
[2018-12-14] MEDS ORDERED: IBUP800T48 PO (15:36)
--- NOTE | 2018-12-14 15:50 | ERD ---
ER Documentation Chief Complaint Chief Complaint chest pain x 4 days; sob HPI 28-year-old female presenting with chest wall pain times 4 days. She has occasional shortness of breath. Her chest pain comes and goes and lasts for about 2-3 minutes. She did not know what causes it and does not know what resolves it. Denies any fevers. Denies any cough. Denies leg swelling. No recent flying. No recent surgery. No OCP use. Denies leg swelling. Denies other medical problems. NKDA. Surgical history denies. Social history smokes 5 cigarettes a day. Drug use denies ROS All systems reviewed and are negative except as per history of present illness. Medications Home Meds Active Scripts Ibuprofen* (Motrin*) 800 Mg Tab, 800 MG PO Q6, #30 TAB Prov:ELINOR BUTTS PA-C 12/14/18 Reported Medications Folic Acid* (Folic Acid*) 0.8 Mg Tablet, 0.8 MG PO DAILY, TAB 03/14/17 Calcium Carbonate* (Calcium Carbonate*) 600 MG Ca Tab, 600 MG PO DAILY, TAB 03/14/17 Ferrous Gluconate (Iron) 236 Mg Tablet, 236 MG PO, TAB 03/14/17 Vit #49/Iron Fum/Fa (MINI TABLET) 1 Each Tablet, 1 EACH PO DAILY 02/19/13 Allergies Allergies: Coded Allergies: No Known Allergy (Unverified , 12/14/18) PMhx/Soc History of Surgery: No Anesthesia Reaction: No Hx Neurological Disorder: No Hx Respiratory Disorders: No Hx Cardiac Disorders: No Hx Psychiatric Problems: No Hx Miscellaneous Medical Probl: No Hx Alcohol Use: Yes Hx Substance Use: No Hx Tobacco Use: Yes (2-3 daily) Smoking Status: Never smoker FmHx Family History: No diabetes, No coronary disease, No other Physical Exam Vitals Vital Signs Date Temp Pulse Resp B/P (MAP) Pulse Ox O2 O2 Flow FiO2 Time Delivery Rate 12/14/18 98.7 87 19 133/80 99 13:39 (97) Physical Exam GENERAL: The patient is well-appearing, well-nourished, in no acute distress HEENT: Atraumatic. Conjunctivae are pink. Pupils equal, round, and reactive to light. There is no scleral icterus. Tympanic membranes clear bilaterally. Oropharynx clear. NECK: C-spine is soft and supple. There is no meningismus. There is no cervical lymphadenopathy. CHEST: Clear to auscultation bilaterally. There are no rales, wheezes or rhonchi. HEART: Regular rate and rhythm. No murmurs, clicks, rubs or gallops. Results 24 hrs Laboratory Tests Test 12/14/18 14:51 POC Beta HCG, Qualitative NEGATIVE Current Medications Medications Dose Sig/Shaka Start Time Status Last (Trade) Ordered Route PRN Stop Time Admin Dose Reason Admin Ketorolac 60 mg ONCE STAT 12/14/18 DC Tromethamine IM 14:39 (Toradol) 12/14/18 14:41 Ibuprofen 800 mg ONCE ONCE 12/14/18 DC 12/14/18 (Motrin) PO 15:00 14:54 12/14/18 15:01 Procedures/MDM EKG: Rate/Rhythm: 84 bpm. Normal Sinus Rhythm QRS, ST, T-waves: No changes consistent w/ acute ischemia Impression: No evidence of ischemia or arrhythmia DIAGNOSTIC IMAGING REPORT Patient: BETITO HOLBROOK : 1990 Age: 28 Sex: F MR #: [id number] DOS: 12/14/18 1439 Ordering MD: PAYTON BUTTS PA-C Location: [facility] Room/Bed: PROCEDURE: XR Chest. CLINICAL INDICATION: chest pain TECHNIQUE: Single frontal view of the chest was obtained COMPARISON: None FINDINGS: The heart and mediastinum are within normal limits. The lungs are clear. There is no pleural effusion or pneumothorax. RPTAT: AA IMPRESSION: No acute disease. MDM: 28-year-old female presenting with chest pain. Abdominal exam is non- concerning. I have low suspicion for acute abdominal emergency radiating to her chest. Chest x-ray and EKG are within normal limits. Patient is discharged with supportive medications and told to follow-up with primary care within 1-2 days for close evaluation. Patient is told symptoms change or worsen to return immediately to the ER. All questions answered at discharge Departure Diagnosis: Primary Impression: Chest pain Condition: Stable Patient Instructions: Chest Pain, Uncertain Cause Referrals: COMMUNITY CLIN[facility] YOU HAVE RECEIVED A MEDICAL SCREENING EXAM AND THE RESULTS INDICATE THAT YOU DO NOT HAVE A CONDITION THAT REQUIRES URGENT TREATMENT IN THE EMERGENCY DEPARTMENT. FURTHER EVALUATION AND TREATMENT OF YOUR CONDITION CAN WAIT UNTIL YOU ARE SEEN IN YOUR DOCTORS OFFICE WITHIN THE NEXT 1-2 DAYS. IT IS YOUR RESPONSIBILITY TO MAKE AN APPOINTMENT FOR FOLOW-UP CARE. IF YOU HAVE A PRIMARY DOCTOR --you should call your primary doctor and schedule an appointment IF YOU DO NOT HAVE A PRIMARY DOCTOR YOU CAN CALL OUR PHYSICIAN REFERRAL HOTLINE AT IF YOU CAN NOT AFFORD TO SEE A PHYSICIAN YOU CAN CHOSE FROM THE FOLLOWING [facility] [id number] [facility] [address] [facility] [facility] [address] [facility] [address] [facility] [address] [facility]. [facility] [address] Additional Instructions: FOLLOW UP WITH YOUR PRIMARY CARE PHYSICIAN TOMORROW.Return to this facility if you are not improving as expected. ELINOR BUTTS PA-C Dec 14, 2018 15:50
== END 2018-12-14 15:45 | disposition home or self-care (01) ==
LOC: FTE 13:31
DX: R07.9 Chest pain, unspecified (principal); Z87.891 Personal history of nicotine dependence
CPT/HCPCS: 71045; 81025; 93005; Z7502; Z7610; J1885